=== PATIENT | female | born 1975 | race Caucasian/White ===

== ENCOUNTER 2021-09-30 12:32 | Outpatient (CLI) | payer OTHER, SELFPAY | END 2021-09-30 12:33 | disposition home or self-care (01) | PROVIDERS: PCP Family Medicine; Visit Provider Physician Assistant | DX: Z01.419 Encounter for gynecological examination (general) (routine) without abnormal findings (principal); E66.9 Obesity, unspecified; R10.13 Epigastric pain; Z13.6 Encounter for screening for cardiovascular disorders | CPT/HCPCS: 80053; 80061; 84443; 87624; 88175 ==

== ENCOUNTER 2022-02-05 12:40 | Outpatient (CLI) | payer OTHER, SELFPAY ==
--- NOTE | 2022-02-05 13:00 | CRLHL7_ITS ---
For Patients: As a result of the Century Cures Act, medical imaging exams and procedure reports are released immediately into your electronic medical record. You may view this report before your referring provider. If you have questions, please contact your health care provider. BILATERAL SCREENING MAMMOGRAM WITH COMPUTER-AIDED DETECTION AND TOMOSYNTHESIS TECHNIQUE: CC and MLO views were obtained. These mammographic images have been obtained using full-field digital technique. These mammographic images were interpreted with the benefit of computer-aided detection. Breast Tomosynthesis was used in this interpretation. COMPARISON FILM: 07/16/16. FINDINGS: The breasts are heterogeneously dense, which may obscure small masses IMPRESSION: There is no radiographic evidence for malignancy. ASSESSMENT: BI-RADS Category 1: Negative RECOMMENDATION: Routine screening mammogram in 1 year. A lay language report of this examination will be provided to the patient. Gus William M.D. Diagnostic Radiologist [email or web address] Transcribed: 3:28 p.gideon patel/Dictated by: Gus William MD @ 02/06/2022 8:36:00 AM (Electronically Signed)
== END 2022-02-05 12:41 | disposition home or self-care (01) ==
LOC: MAMMO 12:41
PROVIDERS: Visit Provider Physician Assistant
DX: Z12.31 Encounter for screening mammogram for malignant neoplasm of breast (principal); R92.2 Inconclusive mammogram
CPT/HCPCS: 77063; 77067

== ENCOUNTER 2023-09-15 07:37 | Outpatient (CLI) | payer OTHER, SELFPAY ==
--- NOTE | 2023-09-15 07:45 | CRLHL7_ITS ---
For Patients: As a result of the Cures Act, medical imaging exams and procedure reports are released immediately into your electronic medical record. You may view this report before your referring provider. If you have questions, please contact your health care provider. BILATERAL SCREENING MAMMOGRAM WITH COMPUTER-AIDED DETECTION AND TOMOSYNTHESIS TECHNIQUE: CC and MLO views were obtained. These mammographic images have been obtained using full-field digital technique. These mammographic images were interpreted with the benefit of computer-aided detection. Breast Tomosynthesis was used in this interpretation. COMPARISON FILM: 02/05/22, 07/16/16. FINDINGS: The breasts are heterogeneously dense, which may obscure small masses. IMPRESSION: There is no radiographic evidence for malignancy. ASSESSMENT: BI-RADS Category 1: Negative RECOMMENDATION: Routine screening mammogram in 1 year. A lay language report of this examination will be provided to the patient. Ayad Williamson M.D. Diagnostic/Nuclear Medicine Radiologist [email or web address] RAKEL/[email or web address] SP/Dictated by: Ayad Williamson MD @ 09/16/2023 10:40:00 AM (Electronically Signed)
== END 2023-09-15 07:38 | disposition home or self-care (01) ==
LOC: MAMMO 07:37
PROVIDERS: PCP Nurse Practitioner Family; Visit Provider Obstetrics & Gynecology
DX: Z12.31 Encounter for screening mammogram for malignant neoplasm of breast (principal); R92.2 Inconclusive mammogram
CPT/HCPCS: 77063; 77067

== ENCOUNTER 2023-11-09 09:10 | Emergency (ER) | payer OTHER, SELFPAY ==
[2023-11-09] VITALS (20 sets, daily range): BP systolic 114–145; BP diastolic 74–97; PULSE 50–66; RESP 16; TEMP 36.7; O2SAT 93–99
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
--- OUTSIDE RECORDS SUMMARY | 2023-11-09 09:45 | XMS_ITS | Encounter Summary ---
Author Organization [facility] Address [address] [place] [id number] Phone [email or web address] [email or web address] Care Team Providers Care Sow Farm Barn Technician Name Role Phone Unavailable Primary Care Provider Unavailabl e Encounter Details Date Type Department Care Team (Late st Contact Info) Description 10/06/2023 Claims Summary [facility] [address] [place] [address] Provider, Claims Summary External, [address] [place] [id number] Social History Tobacco Use Types Packs/Day Years Used Date Smoking Tobacco: Never Assessed Sex and Gender Information Value Date Recorded Sex Assigned at Not on file Gender Identity Not on file Sexual Orientation Not on file documented as of this encounter Plan of Treatment Not on file documented as of this encounter Visit Diagnoses Not on filedocumented in this encounter
--- OUTSIDE RECORDS SUMMARY | 2023-11-09 09:45 | XMS_ITS | Clinical Summary ---
Author Organization [facility] Address [address] [place] [address] Phone [email or web address] Care Team Providers Care Bilingual Manager Name Role Phone Unavailable Primary Care Provider Unavailabl e Encounters Date Type Department Care Team Description 10/06/2023 Claims Summary [facility] [address] [place] [address] Provider, Claims Summary MD Lucas from Last 3 Months Social History Tobacco Use Types Packs/Day Years Used Date Smoking Tobacco: Never Assessed Sex and Gender Information Value Date Recorded Sex Assigned at Not on file Gender Identity Not on file Sexual Orientation Not on file Plan of Treatment Not on file
[2023-11-09 10:15] LABS: Basophils Absolute Auto 0.02 K/uL (0.00-0.30); Basophils Percent Auto 0.3 % (0.0-3.0); Eosinophils Absolute Auto 0.11 K/uL (0.00-0.50); Eosinophils Percent Auto 1.8 % (0.0-7.0); Hematocrit 45.7 % (33.0-51.0); Hemoglobin* 14.8 gm/dL (12.0-16.0); Immature Granulocytes Abs Auto 0.02 K/uL (0.00-0.30); Immature Granulocytes Pct Auto 0.3 %; Lymphocytes Percent Auto 19.3 % (20-44); Mean Corpuscular HGB Conc 32 gm/dL (32-36); Mean Corpuscular Hemoglobin 31 pg (26-34); Mean Corpuscular Volume 95 fL (80-100); Monocytes Percent Auto 6.3 % (0.0-11.0); Neutrophils Absolute Auto 4.47 K/uL (1.7-7.0); Platelet Count* 205 K/uL (140-440); RDW Coefficient of Variation % 12.3 % (11.5-15.5); Red Blood Count 4.83 m/uL (4.00-5.20); White Blood Count* 6.21 K/uL (4.50-11.00)
[2023-11-09 10:18] LABS: Slide Review Reflex No
[2023-11-09 10:28] LABS: Albumin* 4.8 g/dL (3.3-5.0); Chloride* 109 mmol/L (96-114)
[2023-11-09 10:29] LABS: Potassium* 3.7 mmol/L (3.6-5.1); Sodium* 140 mmol/L (135-149)
[2023-11-09 10:31] LABS: Alkaline Phosphatase* 85 U/L (40-150); Anion Gap 5 mEq/L (7-15); Aspartate Amino Transferase* 26 U/L (12-35); Bilirubin Total* 0.4 mg/dL (0.1-1.5); Blood Urea Nitrogen* 10 mg/dL (7-30); Carbon Dioxide* 26 mmol/L (20-32); Creatinine* 0.9 mg/dL (0.5-1.5); Estimated Glomerular Filt Rate 78 ml/min; Total Protein* 7.6 g/dL (6.0-8.3)
[2023-11-09 10:32] LABS: Alanine Aminotransferase* 21 U/L (4-35); Calcium* 10.1 mg/dL (8.4-10.6); Glucose* 108 mg/dL (60-115)
--- OUTSIDE RECORDS SUMMARY | 2023-11-09 11:09 | XMS_ITS | Clinical Summary ---
Author Organization [facility] Address [address] [place] [id number] Phone [email or web address] [email or web address] Care Team Providers Care Finisher Special Stocks Name Role Phone Unavailable Primary Care Provider Unavailabl e Encounters Date Type Department Care Team Description 10/06/2023 Claims Summary [facility] [address] [place] [address] Provider, Claims Summary MD Lucas from Last 3 Months Social History Tobacco Use Types Packs/Day Years Used Date Smoking Tobacco: Never Assessed Sex and Gender Information Value Date Recorded Sex Assigned at Not on file Gender Identity Not on file Sexual Orientation Not on file Plan of Treatment Not on file
--- OUTSIDE RECORDS SUMMARY | 2023-11-09 11:09 | XMS_ITS | Encounter Summary ---
Author Organization [facility] Address [address] [place] [phone] Phone [email or web address] [email or web address] Care Team Providers Care Commercial Real Estate Agent Name Role Phone Unavailable Primary Care Provider Unavailabl e Encounter Details Date Type Department Care Team (Late st Contact Info) Description 10/06/2023 Claims Summary [facility] [address] [place] [address] Provider, Claims Summary External, [address] [place] [id number] Social History Tobacco Use Types Packs/Day [...]
[2023-11-09 11:10] LABS: Appearance Urine Clear (Clear); Bilirubin Urine Negative (Negative); Blood Urine Negative (Negative); Color Urine Yellow (Yellow); Glucose Urine Negative (Negative); Ketones Urine Negative (Negative); Leukocyte Esterase Urine 1+ (Negative); Nitrite Urine Negative (Negative); Protein Urine Negative (Negative); Specific Gravity Urine 1.015 (1.000-1.030); Urobilinogen Urine 0.2 (0.2-1.0)
[2023-11-09] MEDS: TETANUS/DIPHTH/PERTUSSIS 0.5 ML SYRINGE IM (11:15)
[2023-11-09 11:22] LABS: Amorphous Sediment Urine Moderate; Bacteria Urine Few; RBC Urine 0-2 (0-2); Squamous Epithelial Cell Urine Moderate (None-Few); WBC Urine 0-2 (0-5)
== END 2023-11-09 11:55 | disposition home or self-care (01) ==
PROVIDERS: Emergency Provider Student in an Organized Health Care Education/Training Program; PCP Nurse Practitioner Family
DX: R07.89 Other chest pain (principal); V49.9XXA Car occupant (driver) (passenger) injured in unspecified traffic accident, initial encounter
CPT/HCPCS: 36415; 70450; 71260; 72125; 73130; 74177; 80053; 81001; 84484; 85025; 87086; 90471; 90715; 93005; 99283; 99284; 99291; Q9967

== ENCOUNTER 2023-11-13 14:57 | Emergency (ER) | payer OTHER, SELFPAY ==
[2023-11-13 15:02] VITALS: BP 144/102; PULSE 57; RESP 16; TEMP 36.7; O2SAT 99; BMI 34.5
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
--- OUTSIDE RECORDS SUMMARY | 2023-11-13 15:18 | XMS_ITS | Clinical Summary ---
Author Organization [facility] Address [address] [place] [id number] Phone [email or web address] Care Team Providers Care Home Attendant Name Role Phone Unavailable Primary Care Provider Unavailabl e Encounters Date Type Department Care Team Description 10/06/2023 Claims Summary [facility] [address] [place] [address] Provider, Claims Summary MD Lucas from Last 3 Months Social History Tobacco Use Types Packs/Day Years Used Date Smoking Tobacco: Never Assessed Sex and Gender Information Value Date Recorded Sex Assigned at Not on file Gender Identity Not on file Sexual Orientation Not on file Plan of Treatment Not on file
--- OUTSIDE RECORDS SUMMARY | 2023-11-13 15:18 | XMS_ITS | Encounter Summary ---
Author Organization [facility] Address [address] [place] [id number] Phone [email or web address] Care Team Providers Care Early Childhood Teacher Assistant Name Role Phone Unavailable Primary Care Provider Unavailabl e Encounter Details Date Type Department Care Team (Late st Contact Info) Description 10/06/2023 Claims Summary [facility] [address] [place] [address] Provider, Claims Summary External, [address] [place] [id number] Social History Tobacco Use Types Packs/Day [...]
== END 2023-11-13 15:28 | disposition home or self-care (01) ==
PROVIDERS: Emergency Provider Student in an Organized Health Care Education/Training Program; PCP Nurse Practitioner Family
DX: M54.2 Cervicalgia (principal)
CPT/HCPCS: 99282; 99283